=== PATIENT | female | born 1970 | race Caucasian/White ===

== ENCOUNTER 2018-01-17 10:21 | Inpatient (IN) | payer OTHER ==
[~2018-01-17] VITALS: Ht 165.1 cm; Wt 186.0 kg
[2018-01-17 10:31] VITALS: BP 178/119
[2018-01-17] MEDS ORDERED: LISINOPRIL10 MG PO (10:38)
[2018-01-17] MEDS ORDERED: PAROXETINE7.5 MG PO (10:38)
[2018-01-17] MEDS ORDERED: TOPAMAX100 MG PO (10:39)
[2018-01-17 10:56] LABS: HEMATOCRIT 46.2 % (37.0-47.0); HEMOGLOBIN 15.2 gm/dL (12.0-15.0); MCH 26.9 pg (26.0-34.0); MCHC 32.8 g/dL (28.0-37.0); MPV 8.3 fl. (7.2-11.1); NUCLEATED RBCS 0 /100WBC; PLATELET COUNT* 239 thou/uL (150-400); RBC 5.64 mil/uL (4.20-5.00); RDW-CV 18.6 % (10.5-14.5); WBC 20.8 thou/uL (4.0-11.0)
[2018-01-17 11:02] LABS: CALCIUM 9.4 mg/dL (8.5-10.1); CREATININE 1.1 mg/dL (0.6-1.3); POTASSIUM 4.1 mmol/L (3.5-5.1)
[2018-01-17 11:14] LABS: INFLUENZA A ANTIGEN None Detected (None Detect); INFLUENZA B ANTIGEN None Detected (None Detect)
[2018-01-17 11:14] LABS: ALBUMIN 3.5 g/dL (3.4-5.0); TOTAL BILIRUBIN 0.4 mg/dL (<0.1-1.0); TOTAL PROTEIN 8.8 g/dL (6.4-8.2)
[2018-01-17 11:26] LABS: ABSOLUTE LYMPHOCYTES 1.5 thou/uL (0.8-5.3); ABSOLUTE MONOCYTES 0.8 thou/uL (0.0-1.2); ABSOLUTE NEUTROPHILS 18.5 thou/uL (1.6-8.1); ANISOCYTOSIS 1+; HYPOCHROMASIA 1+; MICROCYTES 1+; PLATELET ESTIMATE ADEQUATE
[2018-01-17] MEDS ORDERED: PAXIL10 MG PO (12:04)
[2018-01-17] MEDS ORDERED: METFORMIN HCL500 MG PO (12:05)
[2018-01-17 13:14] LABS: URINE BILIRUBIN NEGATIVE (Negative); URINE BLOOD NEGATIVE (Negative); URINE CLARITY CLEAR; URINE COLOR YELLOW; URINE GLUCOSE-RANDOM NEGATIVE (Negative); URINE KETONES NEGATIVE (Negative); URINE LEUKOCYTES-REFLEX NEGATIVE (Negative); URINE NITRITE-REFLEX NEGATIVE (Negative); URINE PROTEIN NEGATIVE (Negative); URINE SPECIFIC GRAVITY <= 1.005 (1.005-1.030); URINE UROBILINOGEN 0.2 E.U./dl (0.2-1.0)
[2018-01-17 13:34] LABS: AMP/METHAMP Negative (Negative); BARBITURATES Negative (Negative); BENZODIAZEPINES Negative (Negative); COCAINE Negative (Negative); METHADONE Negative (Negative); OPIATES Negative (Negative); PCP Negative (Negative); THC POSITIVE (Negative)
[2018-01-17 14:30] VITALS: BP 133/78
[2018-01-17 14:40] VITALS: BP 107/77
[2018-01-17] MEDS ORDERED: HYDROCHLOROTHIA25 M1 PO (16:31)
--- NOTE | 2018-01-17 16:41 | EKG ---
[place] [address] ELECTROCARDIOGRAM REPORT Name: ROC CONTRERAS Room: [address] IN [facility].#: [id number] Admission: 01/17/18 Attend Phys: Bg Buck MD Discharge: Date of : 74 Report #: [id number] THIS REPORT FOR: //name// [facility] ED Test Date: 2018-01-17 Test Time: 10:43:07 Pat Name: ROC CONTRERAS Department: Room: [facility] Gender: F [employer] Officer: Fabiola SHAVER : 1970 Requested By: David Wellington Order Number: [id number] MD: Deric Barrera Measurements Intervals [place] Rate: 101 P: 71 DE: 154 QRS: 36 QRSD: 104 T: 29 QT: 298 QTc: 387 Interpretive Statements Sinus tachycardia Low voltage, precordial leads Abnormal R-wave progression, late transition Baseline wander in lead(s) V2 No previous ECG available for comparison Electronically Signed On 01-17-2018 16:40:57 CDT by Deric Barrera [email or web address] <ELECTRONICALLY SIGNED> By: Deric Barrera MD, FACC 01/17/18 1640 1043 1043 Deric Barrera MD, FAC /EPI
[2018-01-17 20:00] VITALS: BP 122/72
[2018-01-18] VITALS: BP 135/75
[2018-01-18 04:00] VITALS: BP 123/75
[2018-01-18 05:36] LABS: CALCIUM 8.7 mg/dL (8.5-10.1); CREATININE 1.1 mg/dL (0.6-1.3); POTASSIUM 4.9 mmol/L (3.5-5.1)
[2018-01-18 05:52] LABS: ABSOLUTE LYMPHOCYTES 0.6 thou/uL (0.8-5.3); ABSOLUTE MONOCYTES 0.2 thou/uL (0.0-1.2); ABSOLUTE NEUTROPHILS 14.2 thou/uL (1.6-8.1); BASOPHILS 0.1 %; HEMOGLOBIN 13.2 gm/dL (12.0-15.0); LYMPHOCYTES 3.9 %; MCH 26.6 pg (26.0-34.0); MCHC 32.3 g/dL (28.0-37.0); MCV 82.3 fL (80.0-100.0); MONOCYTES 1.1 %; MPV 8.7 fl. (7.2-11.1); NUCLEATED RBCS 0 /100WBC; PLATELET COUNT* 189 thou/uL (150-400); POLYS 94.9 %; RBC 4.98 mil/uL (4.20-5.00); RDW-CV 18.7 % (10.5-14.5); WBC 14.9 thou/uL (4.0-11.0)
--- NOTE | 2018-01-18 07:39 | CON ---
[address] [address] CONSULTATION Name: ROC CONTRERAS Room: [address] IN [facility].#: [id number] Admission: 01/17/18 Attend Phys: Bg Buck MD Discharge: Date of : 74 Report #: [id number] THIS REPORT FOR: //name// CC: Bg Buck [facility] unknown [facility] DATE OF SERVICE: 01/17/2018 INFECTIOUS DISEASES CONSULTATION ATTENDING PHYSICIAN: Bg Buck M.D. REASON FOR EVALUATION: Febrile illness, suspected early sepsis, possible abdominal wall skin and soft tissue infection with cellulitis. HISTORY OF PRESENT ILLNESS: Chart reviewed, patient examined. This is a 47-year-old with fairly extensive history given her age, primarily notable for bipolar disease and posttraumatic stress disorder, who noted abrupt onset of what sounds like shaking chills with associated fevers, was recorded in excess of 102 degrees Fahrenheit today. She was found to have diminished responsiveness and had some nausea and vomiting and diarrhea as well. She describes abdominal wall related pain as well as bilateral lower extremity inflammatory eruption, which she attributes to venous stasis insufficiency, dermatitis. She was evaluated and subsequently admitted. She is not encephalopathic. Denies significant pulmonary-related complaints. She has been anorexic. Imaging of the abdomen and pelvis, there is question of some possible pyelonephritis with some changes and perinephric fat stranding. 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 Influenza antigen was negative. White count was markedly elevated at 20.8. She has multiple allergies to medicines. She was started on vancomycin as well as levofloxacin. ALLERGIES: LISTED TO PENICILLIN, CEPHALOSPORINS, AMINOGLYCOSIDES, SULFA, MORPHINE, HYDROCODONE, ACETAMINOPHEN, ERYTHROMYCIN, CLINDAMYCIN, , YELLOW DYE. CURRENT MEDICATIONS: Include paroxetine, topiramate, lisinopril, levothyroxine, pantoprazole, methylprednisolone, enoxaparin, p.r.n. analgesics and antiemetics, vancomycin. PAST MEDICAL HISTORY: History of depression, anxiety. SOCIAL HISTORY: Does smoke marijuana, smokes 1/2 pack a day of cigarettes, [place] [address] CONSULTATION Name: ROC CONTRERAS Room: [address]#: [id number] Admission: 01/17/18 Attend Phys: Bg Buck MD Discharge: Date of : 74 Report #: [id number] FAMILY HISTORY: Noncontributory. REVIEW OF SYSTEMS: As above. PHYSICAL EXAMINATION: GENERAL: In mild to moderate distress, appears somewhat chronically ill. VITAL SIGNS: Temperature 102.8, pulse 107, respirations 25, blood pressure is 133/78. SKIN: Warm, dry, no rashes. HEENT: Unremarkable. NECK: Supple. LUNGS: Diminished breath sounds. HEART: Regular. ABDOMEN: Obese, has a pannus in an anterior inferior aspect. There is some moderate degree of inflammatory eruption noted, it is somewhat tender. The umbilicus has a little bit of necrotic ulceration noted. There are no overt peritoneal signs. EXTREMITIES: Lower extremities, bilateral inflammatory eruption as well and certainly consistent with venous stasis insufficiency, dermatitis. GENITOURINARY: Deferred. RECTAL: Deferred. LABORATORY DATA: Positive drug screen for marijuana. test was negative. Urinalysis unremarkable. CT abdomen and pelvis, chest as noted above. Lactic acid 1.6. CBC: White count of 20.8, H and H 15.2 and 46.2, platelets of 239, had a neutrophilia of 18.5. Electrolytes: Sodium 134, potassium 4.1, chloride 98, bicarbonate is 26, BUN and creatinine 21 and 1.1, glucose of 183. AST of 17, ALT of 19, total protein of 8.8, albumin of 3.5. GFR 54. ASSESSMENT: Febrile illness, the patient describes abrupt onset because she likely has abdominal wall cellulitis. Continue combination therapy including coverage for Gram positives. There is no evidence of pneumonitis. She does have back pain, it may be worth exploring. We will do plain films of thoracic and lumbar spine. CT did show L5 changes. We will await blood culture results. <ELECTRONICALLY SIGNED> By: Jorge Malik MD 01/18/18 0739 1524 [id number] Malik MD /nt
[2018-01-18 11:42] VITALS: BP 143/91
[2018-01-18 16:00] VITALS: BP 138/86
[2018-01-18 20:00] VITALS: BP 126/73
[2018-01-18 21:10] LABS: GLYCOHEMOGLOBIN (HGB A1C) 6.4 % (4.8-5.6)
[2018-01-19 04:00] VITALS: BP 172/86
[2018-01-19 05:18] LABS: ABSOLUTE MONOCYTES 0.5 thou/uL (0.0-1.2); ABSOLUTE NEUTROPHILS 8.9 thou/uL (1.6-8.1); EOSINOPHILS 0.1 %; HEMATOCRIT 40.3 % (37.0-47.0); LYMPHOCYTES 9.3 %; MCH 26.7 pg (26.0-34.0); MCHC 32.3 g/dL (28.0-37.0); MCV 82.8 fL (80.0-100.0); MONOCYTES 4.7 %; MPV 8.4 fl. (7.2-11.1); NUCLEATED RBCS 0 /100WBC; PLATELET COUNT* 194 thou/uL (150-400); POLYS 85.9 %; RBC 4.86 mil/uL (4.20-5.00); RDW-CV 18.7 % (10.5-14.5); WBC 10.4 thou/uL (4.0-11.0)
[2018-01-19 06:54] LABS: ALBUMIN 2.8 g/dL (3.4-5.0); CALCIUM 8.9 mg/dL (8.5-10.1); TOTAL BILIRUBIN 0.4 mg/dL (<0.1-1.0); TOTAL PROTEIN 7.1 g/dL (6.4-8.2)
[2018-01-19 08:07] VITALS: BP 156/93
[2018-01-19 16:56] VITALS: BP 157/83
[2018-01-19 22:33] VITALS: BP 142/61
[2018-01-20 04:19] LABS: HEMATOCRIT 39.9 % (37.0-47.0); HEMOGLOBIN 12.9 gm/dL (12.0-15.0); MCH 26.9 pg (26.0-34.0); MCHC 32.3 g/dL (28.0-37.0); MCV 83.1 fL (80.0-100.0); MPV 8.5 fl. (7.2-11.1); RBC 4.8 mil/uL (4.20-5.00); RDW-CV 18.4 % (10.5-14.5); WBC 10.3 thou/uL (4.0-11.0)
[2018-01-20 04:32] LABS: CALCIUM 9.2 mg/dL (8.5-10.1); CREATININE 1.1 mg/dL (0.6-1.3); POTASSIUM 4.3 mmol/L (3.5-5.1)
[2018-01-20 08:00] VITALS: BP 173/84
[2018-01-20 15:45] VITALS: BP 172/91
[2018-01-21] VITALS (7 sets, daily range): BP systolic 155–168; BP diastolic 84–102
[2018-01-21] MEDS ORDERED: MINOCIN100 MG PO (11:49)
== END 2018-01-21 13:42 | disposition home or self-care (01) | DRG 871 ==
LOC: M.ERS 10:21 → M.TBA-ER 13:04 → M.2W 14:45 → M.3W 01-19 16:55
PROVIDERS: Family Medicine; Physician Assistant; ADMIT Internal Medicine
DX: A41.9 Sepsis, unspecified organism (principal); I82.221 Chronic embolism and thrombosis of inferior vena cava; J44.1 Chronic obstructive pulmonary disease with (acute) exacerbation; L03.311 Cellulitis of abdominal wall; N12 Tubulo-interstitial nephritis, not specified as acute or chronic; F17.210 Nicotine dependence, cigarettes, uncomplicated; F41.1 Generalized anxiety disorder; E86.0 Dehydration; R00.0 Tachycardia, unspecified; E66.01 Morbid (severe) obesity due to excess calories; F31.9 Bipolar disorder, unspecified; M51.24 Other intervertebral disc displacement, thoracic region; K42.9 Umbilical hernia without obstruction or gangrene; D35.00 Benign neoplasm of unspecified adrenal gland; M79.3 Panniculitis, unspecified; Z68.44 Body mass index [BMI] 60.0-69.9, adult; Z88.6 Allergy status to analgesic agent; Z88.1 Allergy status to other antibiotic agents; Z88.0 Allergy status to penicillin; Z88.2 Allergy status to sulfonamides; Z88.8 Allergy status to other drugs, medicaments and biological substances